=== PATIENT | male | born 2000 | race Caucasian/White ===

== ENCOUNTER → 2021-08-31 | Outpatient (CLI) | payer OTHER ==
[~2021-08-31] MED LIST: AMOXIL400 MG PO; AUGMENTIN 875875 MG PO; AUGMENTIN ES-6050 ML PO; CLARITIN5 MG/5 ML PO; KEFLEX500 MG PO; NKHM; TYLENOL W/CODE480 ML PO; ZITHROMAX Z PA250 MG PO
== END | disposition home or self-care (01) ==
LOC: LAB 11:43
PROVIDERS: ATTEND Family Medicine
DX: R79.89 Other specified abnormal findings of blood chemistry (principal); R53.83 Other fatigue

== ENCOUNTER → 2021-11-09 | Outpatient (CLI) | payer OTHER | END | disposition home or self-care (01) | LOC: RAD 09:37 → EDSTATUS 10:03 → RAD 10:04 | PROVIDERS: ATTEND Chiropractor | DX: S22.32XA Fracture of one rib, left side, initial encounter for closed fracture (principal); J93.9 Pneumothorax, unspecified; X58.XXXA Exposure to other specified factors, initial encounter; Y93.89 Activity, other specified; Y92.89 Other specified places as the place of occurrence of the external cause; Y99.8 Other external cause status ==

== ENCOUNTER 2022-05-29 16:35 | Emergency (ER) | payer OTHER ==
[~2022-05-29] VITALS: Wt 81.6 kg
[2022-05-29 16:50] VITALS: BP 138/83
[2022-05-29] MEDS ORDERED: NAPROSYN500 MG PO (18:42)
== END 2022-05-29 19:07 | disposition home or self-care (01) ==
LOC: ED 16:35
DX: R07.81 Pleurodynia (principal); R09.1 Pleurisy; Z98.890 Other specified postprocedural states; Z20.822 Contact with and (suspected) exposure to COVID-19

== ENCOUNTER → 2023-03-15 | Outpatient (CLI) | payer OTHER ==
[~2023-03-15] MED LIST changes: +NAPROSYN500 MG PO
== END | disposition home or self-care (01) ==
LOC: LAB 10:05
PROVIDERS: ATTEND Family Medicine
DX: E55.9 Vitamin D deficiency, unspecified (principal); R53.83 Other fatigue; R79.89 Other specified abnormal findings of blood chemistry